=== PATIENT | female | born 1980 | race Caucasian/White ===

== ENCOUNTER 2019-10-03 06:14 | Day surgery (SDC) | payer MEDICARE, MEDICAID ==
[~2019-10-03] VITALS: Ht 157.5 cm; Wt 90.5 kg
[2019-10-03 06:37] LABS: EOSINOPHILS 3.2 % (0-7); HEMATOCRIT 40.3 % (36.0-48.0); HEMOGLOBIN 13.4 g/dL (12-16); IMMATURE GRANULOCYTES 0.3 % (0-5); LYMPHOCYTES 40.9 % (15-50); MCH 31.2 pg (26.0-34.0); MCHC 33.3 g/dL (31.0-37.0); MCV 93.7 fL (80.0-100.0); MEAN PLATELET VOLUME 9.8 fL (7.4-10.4); MONOCYTES 6.1 % (2-11); NEUTROPHILS 48.5 % (40-80); PLATELET COUNT 254 10x3/uL (130-400); RDW 12.8 % (11.5-14.5); WBC 9.6 10x3/uL (4.8-10.8)
[2019-10-03 06:45] LABS: HCG SERUM NEGATIVE (NEGATIVE)
[2019-10-03] MEDS ORDERED: APTIOM400 MG PO (06:48)
[2019-10-03] MEDS ORDERED: GAS-X125 M1 PO (06:49)
[2019-10-03] MEDS ORDERED: KLONOPIN0.5 MG PO (06:49)
[2019-10-03] MEDS ORDERED: ZYRTEC10 MG PO (06:49)
[2019-10-03] MEDS ORDERED: FLUVOXAMINE MAL50 MG PO (06:49)
[2019-10-03] MEDS ORDERED: VIMPAT100 MG PO (06:50)
[2019-10-03] MEDS ORDERED: TOPAMAX100 MG PO (06:50)
[2019-10-03] MEDS ORDERED: ACETAMINOPHEN500 M1 PO (06:50)
[2019-10-03 07:17] VITALS: BP 104/67; Ht 157.5 cm; Wt 90.5 kg
--- NOTE | 2019-10-03 09:00 | NUR ---
0840-RECD FROM GI. CRYING AND MOANING. CLEMENTE JACQUES CRNA AT BEDSIDE. PRECIDEX GIVEN. RESP WITH EASE 0900-SEDATE. RESP WITH EASE. IV PATENT.
--- NOTE | 2019-10-03 09:46 | NUR ---
0940-DISCHARGED HOME VIA WHEELCHAIR WITH MOM.
--- NOTE | 2019-10-06 09:47 | OP ---
PATIENT NAME: REBECCA SAMANIEGO MEDICAL RECORD: [id number] :76 LOCATION:D[facility] ADMISSION DATE: SURGEON: CHANG FINE DO DATE OF OPERATION: 10/03/2019 PROCEDURE: EGD with biopsies. INDICATIONS FOR PROCEDURE: 1. History of Estrada's esophagus. Her last endoscopy is an unknown date. 2. Periumbilical abdominal pain. 3. Irregular bowel habits. SCOPE: Olympus video gastroscope. MEDICATIONS: Propofol 200 mg IV per anesthesia. ESTIMATED BLOOD LOSS: Minimal. COMPLICATIONS: None. FINDINGS: Informed consent was given. The patient was made comfortable with the above medication. After reaching an adequate level of sedation by slow IV push, the patient was placed on her left side. The endoscope was advanced under direct visualization through the mouth to the second portion of the duodenum with ease. The entire esophagus appeared normal. At the lower esophagus and GE junction, there was evidence of Estrada's esophagus. There were no abnormal lesions or dysplastic appearing tissue. Multiple biopsies were taken from multiple areas within the Estrada's segment. The endoscope was advanced beyond the GE junction into the stomach and retroflexed to view the cardia, where a prior Nishi fundoplication was evident, but there is an ongoing hiatal hernia of sliding gastric mucosa through the diaphragmatic hiatus. There were no Geovanni ulcers or other associated lesions. The mucosa throughout the entire stomach appeared somewhat granular and congested consistent with mild chronic gastritis. Random cold forceps biopsies were taken from the antrum and incisura to submit for histopathology and to rule out the presence of H. pylori. The endoscope was advanced beyond the pylorus into the duodenum, which appeared normal to the second portion. Cold forceps biopsies were taken due to the patient's changes and irregular bowel habits. The endoscope was then withdrawn from the patient. The patient tolerated the procedure well and there were no complications. IMPRESSION: 1. Estrada's esophagus. 2. Evidence of a prior Nishi fundoplication with an ongoing hiatal hernia around this. 3. Mild chronic gastritis. PLAN AND RECOMMENDATIONS: 1. Discharge home when recovery parameters are met. 2. Follow up biopsy specimens results. 3. Continue current medications. 4. We will start a proton pump inhibitor for chronic use based on her Estrada's esophagus. 5. Follow up in GI clinic in 6 weeks. 6. We will need surveillance endoscopy at least every 2 years. OPERATIVE REPORT [id number] WUREBECCA FERRO TRANSINT:[id number] Voice Confirmation ID: [id number] DOCUMENT ID: [id number] CHANG FINE DO at 0947 CC: [id number] DICTATION DATE: 10/03/1935 RETIREMENT ADMINISTRATOR: 10/03/19 1707 [facility] 10/03/19 [place] [id number] [place] [id number]
== END 2019-10-03 09:40 | disposition home or self-care (01) ==
LOC: D.OPS 06:14
PROVIDERS: Anesthesiology; ATTEND Internal Medicine Gastroenterology
DX: K22.70 Barrett's esophagus without dysplasia (principal); R10.33 Periumbilical pain; K29.50 Unspecified chronic gastritis without bleeding; K76.0 Fatty (change of) liver, not elsewhere classified; R19.4 Change in bowel habit

== ENCOUNTER 2019-10-24 08:33 | Day surgery (SDC) | payer MEDICARE, MEDICAID ==
[~2019-10-24] VITALS: Ht 157.5 cm; Wt 86.4 kg
[~2019-10-24 08:33] MED LIST: ACETAMINOPHEN500 M1 PO; APTIOM400 MG PO; FLUVOXAMINE MAL50 MG PO; GAS-X125 M1 PO; KLONOPIN0.5 MG PO; TOPAMAX100 MG PO; VIMPAT100 MG PO; ZYRTEC10 MG PO
[2019-10-24 08:58] LABS: HEMOGLOBIN 13.8 g/dL (12-16); MCH 31.3 pg (26.0-34.0); MCHC 34.5 g/dL (31.0-37.0); MCV 90.7 fL (80.0-100.0); MEAN PLATELET VOLUME 9.7 fL (7.4-10.4); RBC 4.41 10x6/uL (4.00-5.40); RDW 12.6 % (11.5-14.5); WBC 7.5 10x3/uL (4.8-10.8)
[2019-10-24 09:17] LABS: HCG SERUM NEGATIVE (NEGATIVE)
[2019-10-24 09:18] VITALS: BP 102/61; Ht 157.5 cm; Wt 86.4 kg
--- NOTE | 2019-10-24 10:49 | NUR ---
DC INSTRUCTIONS GIVEN TO PT/MOTHER. STATE UNDERSTANDING. DC'D IV CATH FULLY INTACT. WILL DC SHORTLY.
--- NOTE | 2019-10-24 11:21 | NUR ---
PT LEFT UNIT VIA WC AT 1103
--- NOTE | 2019-10-26 09:52 | OP ---
PATIENT NAME: REBECCA SAMANIEGO MEDICAL RECORD: [id number] :78 [facility]: SURGEON: CHANG FINE DO DATE OF OPERATION: 10/24/2019 PROCEDURE: Colonoscopy with biopsy, polypectomy, random biopsies, and stool collection. SCOPE: Mobile Experience video pediatric colonoscope. MEDICATIONS: Propofol 220 mg IV and Precedex 10 mcg IV per anesthesia. WITHDRAWAL TIME: 10 minutes. ESTIMATED BLOOD LOSS: Minimal. COMPLICATIONS: None. FINDINGS: Informed consent was given. The patient was made comfortable with the above medication. After reaching an adequate level of sedation by slow IV push, the patient was placed on her left side. A digital rectal examination was performed and it was normal. The endoscope was then advanced under direct visualization through the rectum to the cecum and terminal ileum. The endoscope was slowly withdrawn and mucosa was carefully examined. The prep quality was good. The terminal ileum appeared normal. In the ascending colon, there was a benign-appearing flat polyp, which measured approximately 3 mm in diameter. It was removed with cold forceps. There were no other polyps or diverticula visualized on the rest of the examination. Random cold forceps biopsies were taken to rule out microscopic colitis. Stool was collected to rule out infectious reasons for the change in bowel habits. Retroflexion was performed in the rectum with visualization of a normal rectal wall. The endoscope was withdrawn from the patient. The patient tolerated the procedure well and there were no complications. IMPRESSION: 1. A single benign-appearing ascending colon polyp, which was removed with cold forceps. 2. Otherwise, normal colonoscopy with the stool collected and random biopsies taken. PLAN AND RECOMMENDATIONS: 1. Discharge home when recovery parameters are met. 2. Follow up biopsy specimen results. 3. High fiber diet. 4. Supplement diet with 1 tablespoon of Metamucil daily. 5. Continue current medications. 6. I will offer a prescription for dicyclomine 20 mg t.i.d. p.r.n. loose stools or abdominal pain and cramping. 7. Recall colonoscopy will be dependent on results of pathology of polyp removed on today's examination. 8. Follow up in GI clinic as needed. TRANSINT:[id number] Voice Confirmation ID: [id number] DOCUMENT ID: [id number] OPERATIVE REPORT [id number] REBECCA SAMANIEGO CHANG FINE DO at 0952 CC: [id number] DICTATION DATE: 10/24/19 1013 TRANSFORMER TESTER: 10/24/19 1531 [facility] 10/24/19 [place] [id number] [place] [address]
== END 2019-10-24 11:03 | disposition home or self-care (01) ==
LOC: D.OPS 08:33
PROVIDERS: Anesthesiology; ATTEND Internal Medicine Gastroenterology
DX: K63.5 Polyp of colon (principal); K22.70 Barrett's esophagus without dysplasia; R10.33 Periumbilical pain; K76.0 Fatty (change of) liver, not elsewhere classified; R19.4 Change in bowel habit